=== PATIENT | female | born 1945 | race Caucasian/White ===

== ENCOUNTER 2018-12-04 11:43 | Emergency (ER) | payer MEDICARE ==
[~2018-12-04] VITALS: Ht 127 cm; Wt 36.3 kg
[~2018-12-04 11:43] MED LIST: ACCUPRIL; ACET325 PO; ACYC800 PO; ALBU2.5V5 NEB; ALBU90OI INH; ALBU90OI61 INH; ALEN70; AMIT25; AMIT50 PO; AMLO10 PO; ASPI81EC PO; ATOR10; ATOR10 PO; ATOR40TA; BACL10 PO; BENZ100A PO; CALCAVITD; CALCIUM; CALGLU500; CENTRUM SILVER1 EAC2 PO; CEPH500 PO; CIPR500 PO; CIPRO500 MG PO; CLOB.05TC TP; CLON.1 PO; CLOP75; CLOP75 PO; CYCL10 PO; Colace100 MG PO; DIABETA; DILT120; DIVA500ER PO; DOC250; DOCU100 PO; DOXY100 PO; Desyrel50 MG; ESCI10; FERR325 PO; FLUT.05NI; GABA300 PO; GLIP2.5ER PO; GLIP5; GLIP5ER; GLYB5 PO; HYDACE10B PO; HYDACE5 PO; HYDACE7.5 PO; IBUP400 PO; IBUP600 PO; IMITREX; K-Dur20 MEQ PO; LEVFLO500 PO; LISI5; LOSA25 PO; MAGCHL64ER PO; MAGGLU250 PO; MAGOXI400 PO; MECL25 PO; METF500; METF500 PO; METH10; METO10 PO; METO100ER; METO25ER; METR500 PO; MULVITMINF; MULVITMINF PO; NAPROXEN; NORT25; Norco 5-325 Ta1 EACH PO; OMEG1CAP30 PO; OMEP20ER; OXYACE5T PO; OXYC5; Omeprazole20 M1 PO; PANT40 PO; POTA10T PO; POTCHL20ER PO; PRAV20 PO; PRED20 PO; PROM25 PO; PROP10 PO; PROP60 PO; PYRI100 PO; Pepcid40 MG PO; Prednisone20 MG PO; RANI150 PO; RANITIDINE; ROSU10TA PO; ROSU5 PO; SAXA2.5T; SAXA2.5T PO; SUCR1SU PO; SUMA25; Sucralfate1 GM PO; Super B-50 Com1 EACH PO; TIOT18 IH; TIZANIDINE HCL4 MG PO; TOCO400 PO; TRAM50 PO; UNKNOWN BP MED; VENL25 PO; VERA80 PO; VITAMIN D-32000 UNI1 PO; VITAMIN D-32000 UNIT PO; ZOLP10; Zantac150 MG PO; Zofran Odt8 MG SL; Zofran4 MG PO
[2018-12-04 12:50] LABS: BASOPHILS ABSOLUTE AUTO 0.05 K/mm3 (0.00-0.23); BASOPHILS PERCENT AUTO 1 % (0-2); EOSINOPHILS ABSOLUTE AUTO 0.14 K/mm3 (0.00-0.68); EOSINOPHILS PERCENT AUTO 1 % (0-6); Hematocrit 40.5 % (33.0-51.0); Hemoglobin 12.8 g/dL (11.5-16.0); IMMATURE GRAN ABSOLUTE AUTO 0.03 K/mm3 (0.00-0.10); IMMATURE GRAN PERCENT AUTO 0 % (0-1); LYMPHOCYTES ABSOLUTE AUTO 2.18 K/mm3 (0.84-5.20); LYMPHOCYTES PERCENT AUTO 22 % (21-46); MONOCYTES ABSOLUTE AUTO 0.57 K/mm3 (0.16-1.47); MONOCYTES PERCENT AUTO 6 % (4-13); Mean Corpuscular HGB Conc 31.6 g/dL (31.5-36.5); Mean Corpuscular Volume 95 fL (80-100); Mean Platelet Volume 9.6 fL (9.1-12.4); NEUTROPHILS ABSOLUTE AUTO 6.93 K/mm3 (1.96-9.15); NEUTROPHILS PERCENT AUTO 70 % (41-73); Platelet Count 237 K/mm3 (150-400); RDW Coefficient Variation 16.4 % (11.7-14.2); RDW Standard Deviation 56.2 fL (35.1-46.3); Red Blood Cell Count 4.26 M/mm3 (3.80-5.20)
[2018-12-04 12:58] LABS: Alanine Aminotransfer (ALT/SGP 19 U/L (12-78); Albumin, Blood 2.8 g/dL (3.4-5.0); Albumin/Globulin Ratio 0.8 (0.8-1.8); Alk Phos 109 U/L (50-136); Anion Gap 10 mmol/L (6-16); Aspartate Aminotrans (AST/SGOT 18 U/L (12-37); Bilirubin, Total 0.3 mg/dL (0.1-1.0); Blood Urea Nitrogen 15 mg/dL (8-24); Bun/Creatinine Ratio 32.1 (12.0-20.0); CO2, Blood 25 mmol/L (21-32); Calcium, Blood 8.9 mg/dL (8.5-10.1); Chloride, Blood 112 mmol/L (98-108); Creatinine, Blood 0.47 mg/dL (0.40-1.00); Globulin, Blood 3.7 g/dL (2.2-4.0); Glomerular Filtration Rate >60 (60-); Glucose, Blood 118 mg/dL (70-99); Potassium, Blood 3.9 mmol/L (3.5-5.5); Sodium, Blood 147 mmol/L (136-145); Total Protein, Blood 6.5 g/dL (6.4-8.2)
== END 2018-12-04 15:10 | disposition home or self-care (01) ==
LOC: ER 11:43
PROVIDERS: Emergency Medicine
DX: G89.18 Other acute postprocedural pain (principal); R10.31 Right lower quadrant pain; G43.909 Migraine, unspecified, not intractable, without status migrainosus; E11.9 Type 2 diabetes mellitus without complications; Z88.2 Allergy status to sulfonamides; Z79.84 Long term (current) use of oral hypoglycemic drugs; Z79.899 Other long term (current) drug therapy; Z79.52 Long term (current) use of systemic steroids
CPT/HCPCS: 74177; 80053; 85025; J2270; Q9967

== ENCOUNTER 2019-01-28 11:20 | Emergency (ER) | payer MEDICARE ==
[~2019-01-28] VITALS: Ht 127 cm; Wt 36.3 kg
[2019-01-28 12:18] LABS: BASOPHILS ABSOLUTE AUTO 0.04 K/mm3 (0.00-0.23); BASOPHILS PERCENT AUTO 0 % (0-2); EOSINOPHILS PERCENT AUTO 0 % (0-6); Hematocrit 44.5 % (33.0-51.0); Hemoglobin 14.8 g/dL (11.5-16.0); IMMATURE GRAN ABSOLUTE AUTO 0.03 K/mm3 (0.00-0.10); IMMATURE GRAN PERCENT AUTO 0 % (0-1); LYMPHOCYTES ABSOLUTE AUTO 2.36 K/mm3 (0.84-5.20); LYMPHOCYTES PERCENT AUTO 22 % (21-46); MONOCYTES PERCENT AUTO 6 % (4-13); Mean Corpuscular HGB 31.4 pg (26.0-34.0); Mean Corpuscular HGB Conc 33.3 g/dL (31.5-36.5); Mean Corpuscular Volume 95 fL (80-100); Mean Platelet Volume 9.3 fL (9.1-12.4); NEUTROPHILS ABSOLUTE AUTO 7.97 K/mm3 (1.96-9.15); NEUTROPHILS PERCENT AUTO 72 % (41-73); Platelet Count 324 K/mm3 (150-400); RDW Coefficient Variation 16.1 % (11.7-14.2); RDW Standard Deviation 55.6 fL (35.1-46.3); Red Blood Cell Count 4.71 M/mm3 (3.80-5.20)
[2019-01-28 12:35] LABS: Alanine Aminotransfer (ALT/SGP 30 U/L (12-78); Albumin, Blood 3.4 g/dL (3.4-5.0); Albumin/Globulin Ratio 0.8 (0.8-1.8); Alk Phos 97 U/L (50-136); Anion Gap 9 mmol/L (6-16); Aspartate Aminotrans (AST/SGOT 48 U/L (12-37); Bilirubin, Total 0.5 mg/dL (0.1-1.0); Blood Urea Nitrogen 21 mg/dL (8-24); Bun/Creatinine Ratio 43.6 (12.0-20.0); CO2, Blood 24 mmol/L (21-32); Calcium, Blood 9.4 mg/dL (8.5-10.1); Chloride, Blood 99 mmol/L (98-108); Creatinine, Blood 0.48 mg/dL (0.40-1.00); Globulin, Blood 4.5 g/dL (2.2-4.0); Glomerular Filtration Rate >60 (60-); Glucose, Blood 414 mg/dL (70-99); Potassium, Blood 4.5 mmol/L (3.5-5.5); Sodium, Blood 132 mmol/L (136-145); Total Protein, Blood 7.9 g/dL (6.4-8.2)
== END 2019-01-28 19:21 | disposition left against medical advice (07) ==
LOC: MRI 11:20 → ER 11:20
PROVIDERS: Physician Assistant
DX: M79.604 Pain in right leg (principal); M79.605 Pain in left leg; M41.9 Scoliosis, unspecified; G43.909 Migraine, unspecified, not intractable, without status migrainosus; E11.9 Type 2 diabetes mellitus without complications; Z79.52 Long term (current) use of systemic steroids; Z79.899 Other long term (current) drug therapy; Z79.84 Long term (current) use of oral hypoglycemic drugs; Z88.2 Allergy status to sulfonamides; Z87.891 Personal history of nicotine dependence
CPT/HCPCS: 36415; 72148; 80053; 84484; 85025; 93005; 93010; 96374; 96375; 99284-25; J1170; J2405

== ENCOUNTER 2019-04-18 10:02 | Emergency (ER) | payer MEDICARE, OTHER ==
[~2019-04-18] VITALS: Ht 127 cm; Wt 34.5 kg
[2019-04-18 11:29] LABS: BASOPHILS ABSOLUTE AUTO 0.02 K/mm3 (0.00-0.23); BASOPHILS PERCENT AUTO 0 % (0-2); EOSINOPHILS ABSOLUTE AUTO 0.02 K/mm3 (0.00-0.68); EOSINOPHILS PERCENT AUTO 0 % (0-6); Hematocrit 28.4 % (33.0-51.0); Mean Corpuscular HGB 32.4 pg (26.0-34.0); Mean Corpuscular HGB Conc 31.7 g/dL (31.5-36.5); Mean Corpuscular Volume 102 fL (80-100); Mean Platelet Volume 9.8 fL (9.1-12.4); Platelet Count 159 K/mm3 (150-400); RDW Standard Deviation 60.1 fL (35.1-46.3); Red Blood Cell Count 2.78 M/mm3 (3.80-5.20); White Blood Cell Count 9.12 K/mm3 (4.00-11.30)
[2019-04-18 11:50] LABS: Alanine Aminotransfer (ALT/SGP 34 U/L (12-78); Albumin, Blood 2.3 g/dL (3.4-5.0); Albumin/Globulin Ratio 0.6 (0.8-1.8); Alk Phos 109 U/L (50-136); Anion Gap 7 mmol/L (6-16); Aspartate Aminotrans (AST/SGOT 13 U/L (12-37); Bilirubin, Total 0.7 mg/dL (0.1-1.0); Blood Urea Nitrogen 15 mg/dL (8-24); Bun/Creatinine Ratio 26.3 (12.0-20.0); CO2, Blood 26 mmol/L (21-32); Calcium, Blood 8.5 mg/dL (8.5-10.1); Chloride, Blood 105 mmol/L (98-108); Creatinine, Blood 0.57 mg/dL (0.40-1.00); Globulin, Blood 3.8 g/dL (2.2-4.0); Glomerular Filtration Rate >60 (60-); Glucose, Blood 115 mg/dL (70-99); Potassium, Blood 3.5 mmol/L (3.5-5.5); Sodium, Blood 138 mmol/L (136-145); Total Protein, Blood 6.1 g/dL (6.4-8.2)
[2019-04-18 11:55] LABS: IMMATURE GRAN ABSOLUTE AUTO 0.08 K/mm3 (0.00-0.10); IMMATURE GRAN PERCENT AUTO 1 % (0-1); LYMPHOCYTES ABSOLUTE AUTO 0.49 K/mm3 (0.84-5.20); LYMPHOCYTES PERCENT AUTO 5 % (21-46); MONOCYTES ABSOLUTE AUTO 0.08 K/mm3 (0.16-1.47); MONOCYTES PERCENT AUTO 1 % (4-13); NEUTROPHILS ABSOLUTE AUTO 8.43 K/mm3 (1.96-9.15); NEUTROPHILS PERCENT AUTO 92 % (41-73)
[2019-04-18] MEDS ORDERED: OXYC10TA19 PO (13:34)
[2019-04-18] MEDS ORDERED: ONDA4ODT MM (13:35)
== END 2019-04-18 14:36 | disposition home or self-care (01) ==
LOC: ER 10:02
PROVIDERS: Emergency Medicine
DX: K59.00 Constipation, unspecified (principal); R51 Headache; C56.9 Malignant neoplasm of unspecified ovary; E11.9 Type 2 diabetes mellitus without complications; Z88.2 Allergy status to sulfonamides; Z87.891 Personal history of nicotine dependence
CPT/HCPCS: 74018; 80053; 85025; 96361; 96374; 96375; 99284-25; J1170; J1200; J1642; J1885; J7030

== ENCOUNTER 2019-04-24 16:31 | Inpatient (IN) | payer MEDICARE, OTHER ==
[~2019-04-24] VITALS: Ht 134.6 cm; Wt 34.5 kg
[~2019-04-24 16:31] MED LIST changes: +ONDA4ODT MM; +OXYC10TA19 PO
[2019-04-24 17:01] LABS: Hematocrit 27.2 % (33.0-51.0); Hemoglobin 8.6 g/dL (11.5-16.0); Mean Corpuscular HGB Conc 31.6 g/dL (31.5-36.5); Mean Corpuscular Volume 104 fL (80-100); Mean Platelet Volume 10.5 fL (9.1-12.4); Platelet Count 72 K/mm3 (150-400); RDW Coefficient Variation 15.6 % (11.7-14.2); RDW Standard Deviation 59.8 fL (35.1-46.3); Red Blood Cell Count 2.61 M/mm3 (3.80-5.20); White Blood Cell Count 8.56 K/mm3 (4.00-11.30)
[2019-04-24 17:23] LABS: Alanine Aminotransfer (ALT/SGP 47 U/L (12-78); Albumin, Blood 2.6 g/dL (3.4-5.0); Albumin/Globulin Ratio 0.6 (0.8-1.8); Alk Phos 203 U/L (50-136); Anion Gap 8 mmol/L (6-16); Aspartate Aminotrans (AST/SGOT 51 U/L (12-37); BAND PERCENT MAN 1 % (0-8); BASOPHILS PERCENT MAN 0 % (0-2); Bilirubin, Total 0.9 mg/dL (0.1-1.0); Blood Urea Nitrogen 16 mg/dL (8-24); Bun/Creatinine Ratio 29.4 (12.0-20.0); CO2, Blood 24 mmol/L (21-32); Calcium, Blood 8.9 mg/dL (8.5-10.1); Chloride, Blood 109 mmol/L (98-108); Creatinine, Blood 0.55 mg/dL (0.40-1.00); EOSINOPHILS PERCENT MAN 0 % (0-6); Glomerular Filtration Rate >60 (60-); Glucose, Blood 175 mg/dL (70-99); LYMPHOCYTES ABSOLUTE MAN 0.08 K/mm3 (0.84-5.20); LYMPHOCYTES PERCENT MAN 1 % (21-46); MONOCYTES PERCENT MAN 0 % (4-13); NEUTROPHILS ABSOLUTE MAN 8.47 K/mm3 (1.96-9.15); Potassium, Blood 3.5 mmol/L (3.5-5.5); SEG NEUTROPHILS PERCENT MAN 98 % (41-73); Sodium, Blood 141 mmol/L (136-145); TOTAL CELLS COUNTED 100; Total Protein, Blood 6.6 g/dL (6.4-8.2); Troponin I <0.015 ng/mL (0.000-0.040)
[2019-04-24] MEDS ORDERED: Lovastatin20 MG PO (21:08)
[2019-04-24] MEDS ORDERED: METF500 PO (21:08)
[2019-04-24] MEDS ORDERED: Imitrex50 MG PO (21:09)
[2019-04-24] MEDS ORDERED: ACET500 PO (21:15)
[2019-04-24 23:54] LABS: Source, Urine Clean Catch
[2019-04-25 00:04] LABS: Bilirubin, Urine Neg (Neg); Blood, Urine 4+ (Neg); Glucose Qualitative, Urine Neg (Neg); Ketones, Urine 3+ (Neg); Leukocyte Esterase, Urine Neg (Neg); Nitrite, Urine Neg (Neg); Protein, Urine 3+ (Neg); Urobilinogen, Urine NORM (Normal)
[2019-04-25 00:19] LABS: Appearance, Urine Clear (Clear); Bacteria Not Seen /hpf; Color, Urine Yellow (P-Yellow); Red Blood Cells, Urine 25-50 /hpf (0-2); Squamous Epithelial Cells Not Seen /hpf (Few); White Blood Cells, Urine Rare /hpf (0-5)
[2019-04-25 05:30] LABS: BASOPHILS ABSOLUTE AUTO 0.01 K/mm3 (0.00-0.23); BASOPHILS PERCENT AUTO 0 % (0-2); Hematocrit 24.3 % (33.0-51.0); Hemoglobin 7.9 g/dL (11.5-16.0); LYMPHOCYTES ABSOLUTE AUTO 0.37 K/mm3 (0.84-5.20); LYMPHOCYTES PERCENT AUTO 5 % (21-46); MONOCYTES ABSOLUTE AUTO 0.07 K/mm3 (0.16-1.47); MONOCYTES PERCENT AUTO 1 % (4-13); Mean Corpuscular HGB 33.3 pg (26.0-34.0); Mean Corpuscular HGB Conc 32.5 g/dL (31.5-36.5); Mean Corpuscular Volume 103 fL (80-100); RDW Coefficient Variation 15.5 % (11.7-14.2); RDW Standard Deviation 58.4 fL (35.1-46.3); Red Blood Cell Count 2.37 M/mm3 (3.80-5.20)
[2019-04-25 05:35] LABS: EOSINOPHILS PERCENT AUTO 0 % (0-6); IMMATURE GRAN ABSOLUTE AUTO 0.71 K/mm3 (0.00-0.10); IMMATURE GRAN PERCENT AUTO 10 % (0-1); Mean Platelet Volume 10.3 fL (9.1-12.4); NEUTROPHILS ABSOLUTE AUTO 6.24 K/mm3 (1.96-9.15); NEUTROPHILS PERCENT AUTO 84 % (41-73); Platelet Count 66 K/mm3 (150-400)
--- NOTE | 2019-04-25 05:48 | NUR ---
SHIFT SUMMARY PT ARRIVED TO FLOOR IN SOME DISCOMFORT. PT MEDICATED PER EMAR. PT C/O PERSAUD AND ABD PAIN/ CRAMPING. PT REMAINED NPO T/O SHIFT. PT HAS SLEPT OFF AND ON. PT IS HARD IV START AND HAD ONE SITE INFILTRATE. LAB HAD DIFFICULTY DRAWING BLOOD. PT ABLE TO USE RESTROOM WITH 1 ASSIST. PT MEDICATED PER EMAR WITH REDUCTION IN DISCOMFORT. PT CURRENTLY SLEEPING AND BREATHING. CALL LIGHT IN REACH.
[2019-04-25 06:04] LABS: Alanine Aminotransfer (ALT/SGP 50 U/L (12-78); Albumin, Blood 2.2 g/dL (3.4-5.0); Albumin/Globulin Ratio 0.6 (0.8-1.8); Alk Phos 227 U/L (50-136); Anion Gap 9 mmol/L (6-16); Aspartate Aminotrans (AST/SGOT 49 U/L (12-37); Bilirubin, Total 0.8 mg/dL (0.1-1.0); Blood Urea Nitrogen 10 mg/dL (8-24); Bun/Creatinine Ratio 18.7 (12.0-20.0); CO2, Blood 24 mmol/L (21-32); Chloride, Blood 107 mmol/L (98-108); Creatinine, Blood 0.53 mg/dL (0.40-1.00); Globulin, Blood 3.9 g/dL (2.2-4.0); Glomerular Filtration Rate >60 (60-); Glucose, Blood 98 mg/dL (70-99); Magnesium, Blood 1.4 mg/dL (1.6-2.4); Potassium, Blood 3.2 mmol/L (3.5-5.5); Sodium, Blood 140 mmol/L (136-145); Total Protein, Blood 6.1 g/dL (6.4-8.2)
--- NOTE | 2019-04-25 11:31 | NUR ---
Patient is lying in bed and resting when I entered patient's room. Patient quickly awakens to the sound of her name. Patient shares with me about her cancer ledezma, her struggle with headaches, her family unit complications, her need for better aid at home, her niki traditions and her recent fall. Patient says that she is too stubborn to give up on her fight against cancer. I listen empathically, reinforce helpful attitudes and practices, provide companionship, pastoral prevocational/rehabilitation counselor and prayer. Patient responds well and asks me to visit again. I will continue to be available to patient and family.
--- NOTE | 2019-04-25 16:49 | NUR ---
PATIENT HAS HAD NO ACUTE CHANGES. PAIN MEDS CHANGED TO OXY PER PATIENT REQUEST WHICH HAVE RELIEVED HER PAIN TO HER SATISFACTION. SHE IS A SBA TO THE BSC. PATIENT HAS BEEN UPGRADED TO FULL LIQUIDS. HAS OF THIS TIME SHE HAS NOT HAD ANY AND THUS THIS NURSE IS UNABLE TO VERIFY HOW SHE IS TOLERATING THEM.
--- NOTE | 2019-04-25 18:24 | NUR ---
POTASSIUM CAUSING PATIENT GREAT PAIN EVEN SLOWING RATE DOWN AND INCREASING RATE OF NS. ABX DUE SO THAT WAS HUNG. WILL REEVALUATE PATIENTS TOLERANCE TO THE K+ AFTER ABX HAS RAN. WILL PASS THIS ON TO FINISHING AND SHIPPING SUPERVISOR IT WILL MOST LIKELY FALL ON HIS SHIFT.
[2019-04-26 05:05] LABS: Hematocrit 24.2 % (33.0-51.0); Hemoglobin 7.7 g/dL (11.5-16.0); Mean Corpuscular HGB 33.3 pg (26.0-34.0); Mean Corpuscular HGB Conc 31.8 g/dL (31.5-36.5); Mean Corpuscular Volume 105 fL (80-100); Mean Platelet Volume 10.8 fL (9.1-12.4); RDW Coefficient Variation 15.5 % (11.7-14.2); RDW Standard Deviation 59.7 fL (35.1-46.3); Red Blood Cell Count 2.31 M/mm3 (3.80-5.20); White Blood Cell Count 5.49 K/mm3 (4.00-11.30)
[2019-04-26 05:09] LABS: Platelet Count 49 K/mm3 (150-400)
[2019-04-26 05:26] LABS: Alanine Aminotransfer (ALT/SGP 44 U/L (12-78); Albumin, Blood 1.9 g/dL (3.4-5.0); Albumin/Globulin Ratio 0.5 (0.8-1.8); Alk Phos 172 U/L (50-136); Anion Gap 9 mmol/L (6-16); Aspartate Aminotrans (AST/SGOT 33 U/L (12-37); Bilirubin, Direct 0.1 mg/dL (0.0-0.3); Bilirubin, Indirect 0.4 mg/dL (0.1-0.7); Bilirubin, Total 0.5 mg/dL (0.1-1.0); Blood Urea Nitrogen 9 mg/dL (8-24); Bun/Creatinine Ratio 17.5 (12.0-20.0); CO2, Blood 21 mmol/L (21-32); Calcium, Blood 7.9 mg/dL (8.5-10.1); Chloride, Blood 112 mmol/L (98-108); Creatinine, Blood 0.51 mg/dL (0.40-1.00); Globulin, Blood 3.7 g/dL (2.2-4.0); Glomerular Filtration Rate >60 (60-); Glucose, Blood 130 mg/dL (70-99); Phosphorus, Blood 1.4 mg/dL (2.5-4.9); Potassium, Blood 3.7 mmol/L (3.5-5.5); Sodium, Blood 142 mmol/L (136-145); Total Protein, Blood 5.6 g/dL (6.4-8.2)
[2019-04-26 05:33] LABS: BAND PERCENT MAN 7 % (0-8); BASOPHILS PERCENT MAN 0 % (0-2); EOSINOPHILS PERCENT MAN 0 % (0-6); LYMPHOCYTES ABSOLUTE MAN 0.32 K/mm3 (0.84-5.20); LYMPHOCYTES PERCENT MAN 6 % (21-46); METAMYELOCYTE PERCENT MAN 2 % (0-0); MONOCYTES ABSOLUTE MAN 0.05 K/mm3 (0.16-1.47); MONOCYTES PERCENT MAN 1 % (4-13); NEUTROPHILS ABSOLUTE MAN 4.99 K/mm3 (1.96-9.15); SEG NEUTROPHILS PERCENT MAN 84 % (41-73); TOTAL CELLS COUNTED 100
--- NOTE | 2019-04-26 06:21 | NUR ---
SHIFT SUMMARY PT HAD NO ISSUES OR COMPLAINTS NOTED. PT SLEPT T/O SHIFT. PT DISCOMFORT TX PER EMAR. PT DID HAVE A CRITICAL PLT RESULT. PROVIDER CALLED AND NO ORDERS GIVEN. PT CURRENTLY SLEEPING AND BREATHING EASY. CALL LIGHT IN REACH.
--- NOTE | 2019-04-26 12:11 | NUR ---
Patient share about her fears of going home alone and states that she is afraid of falls due to weakness and concerns about not being able to prepare her own meals. Patient also talks about her fear that her prayers are not heard when she asks God to take away the pain and cancer. I listen empathically, provide spiritual guidance, companionship and prayer. Patient responds well and shows signs of restore niki. I follow up with patient's RN Baldo after visiting with patient and explain patient's fears about going home. Rn states that she will ask patient's doctor for a manager social work referral. I will continue to be available to patient and family.
--- NOTE | 2019-04-26 18:15 | NUR ---
NO ACUTE CHANGES. PATIENTS IV WONT FLUSH . ABX MEDS CHANGED TO PO. PATIENT IS CONCERNED WITH BEING DISCHARGED TO HOME SHE FEELS LIKE SHE CANNOT TAKE CARE OF HERSELF. PALLATIVE CARE REQUESTED. SHE WOULD LIKE TO DISCUSS WITH DISCHARGE PLANNING OR PALLATIVE CARE WHAT HER OPTIONS ARE. SHE CONTINUES TO HAVE WEAKNESS AND REQUIRES SBA TO GET TO BSC
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
[2019-04-27 05:14] LABS: Hematocrit 25.7 % (33.0-51.0); Mean Corpuscular HGB 33.3 pg (26.0-34.0); Mean Corpuscular HGB Conc 31.1 g/dL (31.5-36.5); Mean Corpuscular Volume 107 fL (80-100); Mean Platelet Volume 11.7 fL (9.1-12.4); RDW Coefficient Variation 15.4 % (11.7-14.2); RDW Standard Deviation 60.6 fL (35.1-46.3); White Blood Cell Count 4.63 K/mm3 (4.00-11.30)
[2019-04-27 05:20] LABS: Platelet Count 33 K/mm3 (150-400)
[2019-04-27 05:32] LABS: Anion Gap 7 mmol/L (6-16); Blood Urea Nitrogen 12 mg/dL (8-24); Bun/Creatinine Ratio 24.5 (12.0-20.0); CO2, Blood 22 mmol/L (21-32); Calcium, Blood 8.3 mg/dL (8.5-10.1); Chloride, Blood 112 mmol/L (98-108); Creatinine, Blood 0.49 mg/dL (0.40-1.00); Glomerular Filtration Rate >60 (60-); Glucose, Blood 178 mg/dL (70-99); Magnesium, Blood 1.9 mg/dL (1.6-2.4); Phosphorus, Blood 2.3 mg/dL (2.5-4.9); Potassium, Blood 4.1 mmol/L (3.5-5.5); Sodium, Blood 141 mmol/L (136-145)
[2019-04-27 05:38] LABS: BAND PERCENT MAN 2 % (0-8); BASOPHILS PERCENT MAN 0 % (0-2); EOSINOPHILS PERCENT MAN 0 % (0-6); LYMPHOCYTES ABSOLUTE MAN 0.41 K/mm3 (0.84-5.20); LYMPHOCYTES PERCENT MAN 9 % (21-46); MONOCYTES ABSOLUTE MAN 0.04 K/mm3 (0.16-1.47); MONOCYTES PERCENT MAN 1 % (4-13); NEUTROPHILS ABSOLUTE MAN 4.16 K/mm3 (1.96-9.15); SEG NEUTROPHILS PERCENT MAN 88 % (41-73); TOTAL CELLS COUNTED 100
--- NOTE | 2019-04-27 18:18 | NUR ---
SHIFT SUMMARY PT AXO, PLEASANT AND COOPERATIVE WITH CARE. PT TEMP 99.8 AT 1433, MEDICATED PER EMAR FOR FEVER AND PERSAUD. BP AT 0825 WAS ELEVATED AT 208/103 THOUGH NURSE SUSPECTS THE BP CUFF TOO SMALL, IT WAS A CHILD SIZE. DR FENG ALSO AWARE OF ELEVATED BP. IT IS 146/74 AT THIS TIME. PT ALSO MEDICATED FOR MIGRAINE WELL. NO OTHER CHANGES THIS SHIFT.
[2019-04-28 05:39] LABS: Anion Gap 5 mmol/L (6-16); Blood Urea Nitrogen 11 mg/dL (8-24); Bun/Creatinine Ratio 24.8 (12.0-20.0); CO2, Blood 27 mmol/L (21-32); Calcium, Blood 8.4 mg/dL (8.5-10.1); Chloride, Blood 110 mmol/L (98-108); Creatinine, Blood 0.44 mg/dL (0.40-1.00); Glomerular Filtration Rate >60 (60-); Glucose, Blood 163 mg/dL (70-99); Phosphorus, Blood 3.4 mg/dL (2.5-4.9); Sodium, Blood 142 mmol/L (136-145)
[2019-04-28 06:34] LABS: Hematocrit 25.2 % (33.0-51.0); Hemoglobin 7.8 g/dL (11.5-16.0); Mean Corpuscular HGB 32.6 pg (26.0-34.0); Mean Corpuscular Volume 105 fL (80-100); Mean Platelet Volume 10.1 fL (9.1-12.4); RDW Coefficient Variation 15.3 % (11.7-14.2); RDW Standard Deviation 59.7 fL (35.1-46.3); Red Blood Cell Count 2.39 M/mm3 (3.80-5.20); White Blood Cell Count 4.71 K/mm3 (4.00-11.30)
[2019-04-28 06:36] LABS: Platelet Count 16 K/mm3 (150-400)
[2019-04-28 06:46] LABS: BAND PERCENT MAN 3 % (0-8); BASOPHILS ABSOLUTE MAN 0.04 K/mm3 (0.00-0.23); BASOPHILS PERCENT MAN 1 % (0-2); EOSINOPHILS PERCENT MAN 0 % (0-6); LYMPHOCYTES ABSOLUTE MAN 0.56 K/mm3 (0.84-5.20); LYMPHOCYTES PERCENT MAN 12 % (21-46); MONOCYTES ABSOLUTE MAN 0.23 K/mm3 (0.16-1.47); MONOCYTES PERCENT MAN 5 % (4-13); NEUTROPHILS ABSOLUTE MAN 3.86 K/mm3 (1.96-9.15); SEG NEUTROPHILS PERCENT MAN 79 % (41-73); TOTAL CELLS COUNTED 100
--- NOTE | 2019-04-28 12:58 | NUR ---
PT'S BROTHER LILLY CALLED AND NOTIFIED NURSE THAT PT HAS A CHEMO APPOINTMENT AT 1015 TOMORROW MORNING 04/29/19. HE CAN DRIVE HER TO THAT APPOINTMENT. HIS PHONE NUMBER IS [phone] AND HOME NUMBER IS [phone]
--- NOTE | 2019-04-28 17:54 | NUR ---
SHIFT SUMMARY PT AXO, PLEASANT AND COOPERATIVE WITH CARE. UP TO CHAIR FOR MEALS. AMBULATING TO BATHROOM TO VOID. PT COMPLAINS OF HEADACHE, MEDICATED PER EMAR THOUGH DENIES PERSAUD. VSS. DR NOTIFIED OF [facility] THIS AM, SEE LAB. NO OTHER CHANGES THIS SHIFT. SEE NOTE ABOUT PT CHEMO APPOINTMENT TOMORROW. BED IN LOW POSITION, CALL LIGHT WIHTIN REACH.
[2019-04-29 04:56] LABS: Hematocrit 28.6 % (33.0-51.0); Mean Corpuscular HGB Conc 31.5 g/dL (31.5-36.5); Mean Corpuscular Volume 105 fL (80-100); NRBC ABSOLUTE 0.04 K/mm3 (0.00-0.02); NRBC Auto 0.5 /100 WBC (0.0-0.2); RDW Coefficient Variation 15.3 % (11.7-14.2); RDW Standard Deviation 59.1 fL (35.1-46.3); Red Blood Cell Count 2.73 M/mm3 (3.80-5.20); White Blood Cell Count 8.06 K/mm3 (4.00-11.30)
[2019-04-29 05:07] LABS: Platelet Count 10 K/mm3 (150-400)
[2019-04-29 05:17] LABS: BAND PERCENT MAN 11 % (0-8); BASOPHILS PERCENT MAN 0 % (0-2); EOSINOPHILS PERCENT MAN 0 % (0-6); LYMPHOCYTES ABSOLUTE MAN 0.72 K/mm3 (0.84-5.20); LYMPHOCYTES PERCENT MAN 9 % (21-46); METAMYELOCYTE ABSOLUTE MAN 0.08 K/mm3 (0.00-0.00); METAMYELOCYTE PERCENT MAN 1 % (0-0); MONOCYTES PERCENT MAN 10 % (4-13); MYELOCYTE ABSOLUTE MAN 0.08 K/mm3 (0.00-0.00); MYELOCYTE PERCENT MAN 1 % (0-0); NEUTROPHILS ABSOLUTE MAN 6.36 K/mm3 (1.96-9.15); SEG NEUTROPHILS PERCENT MAN 68 % (41-73); TOTAL CELLS COUNTED 100
--- NOTE | 2019-04-29 06:35 | NUR ---
SHIFT SUMMARY NO ACUTE EVENTS OVERNIGHT. PATIENT UP WITH SBA AND FWW TO BATHROOM MULTIPLE TIMES THROUGHOUT NIGHT. PAIN MEDICATION REQUESTED FOR HEADACHE AND LOWER ABDOMINAL PAIN. PATIENT SCHEDULED FOR 10 AM CHEMOTHERAPY AND IF GOING TO BE DISCHARGED FOR THIS THERAPY BROTHER CAN DRIVE PATIENT TO APPOINTMENT. CRITICAL PLATELET COUNT OF 10 CALLED IN TO PSYCHOLOGICAL AIDE PHYSICIAN.
--- NOTE | 2019-04-29 07:36 | NUR ---
ASSUMED CARE OF PT- BEDSIDE REPORT COMPLETED WITH NIGHT RN ELEAZAR. PER REPORT PT HAS Ca AND IS BEING TREATED WITH CHEMO. LAST TREATMENT WAS LAST MONDAY. PER REPORT PT HAS ANOTHER CHEMO Tx SCHEDULED FOR TODAY AT 10AM. PLAN IS FOR PT TO BE DISCHARGED PRIOR TO THE APPOINTMENT SO THAT SHE CAN MAKE IT TO THE [facility] FOR TREATMENT. WILL CALL HOSPITALIST ADEN.
[2019-04-29] MEDS ORDERED: Vsl#3 Capsule1 EACH PO (09:53)
[2019-04-29] MEDS ORDERED: AMOCLA500 PO (09:53)
--- NOTE | 2019-04-29 12:07 | NUR ---
Patient is sitting on a chair and is alert. Patient complains of head and stomach pain. Patient's RN provides pain meds while I am present. Patient expresses her concerns about going home with minimal assistance but says she thinks that she can manage. I listen empathically. I provide companionship and prayer. Patient thanks me for the visit.
--- NOTE | 2019-04-29 13:30 | NUR ---
DISCHARGE NOTE- PT BROTHER PRESENT AT THE TIME OF DISCHARGE. PT WAS GIVEN VERBAL AND WRITTEN DISCHARGE INSTRUCTIONS AND ACKNOWLEDGED UNDERSTANDING OF THEM. PT MEDIPORT WAS HEPRIN LOCKED AND DEACCESSED AFTER PLATLET INFUSION WAS COMPLETED. AT THE TIME OF DISCHARGE PT HAD NO FURTHER QUESTIONS. PT WAS MEDICATED FOR PAIN PRIOR TO DISCHARGE. PT WAS TAKEN BY W/C ESCORT SERVICE TO THE PT ENTRANCE WHERE HER BROTHER TRANSPORTED HER HOME.
== END 2019-04-29 12:41 | disposition home or self-care (01) | DRG 392 ==
LOC: ER 16:31 → MEDS 20:31 → ER 20:31 → MEDS 20:31 → ENPENDDIS 04-29 09:12 → MEDS 04-29 12:41
PROVIDERS: Emergency Medicine; Internal Medicine; Nurse Practitioner Acute Care; ADMIT Hospitalist
DX: K57.32 Diverticulitis of large intestine without perforation or abscess without bleeding (principal); C78.5 Secondary malignant neoplasm of large intestine and rectum; C56.9 Malignant neoplasm of unspecified ovary; C78.7 Secondary malignant neoplasm of liver and intrahepatic bile duct; C77.9 Secondary and unspecified malignant neoplasm of lymph node, unspecified; C79.82 Secondary malignant neoplasm of genital organs; D69.6 Thrombocytopenia, unspecified; D63.8 Anemia in other chronic diseases classified elsewhere; D64.81 Anemia due to antineoplastic chemotherapy; Z92.21 Personal history of antineoplastic chemotherapy; E87.6 Hypokalemia; E83.39 Other disorders of phosphorus metabolism; E83.42 Hypomagnesemia; E11.9 Type 2 diabetes mellitus without complications; G89.4 Chronic pain syndrome; Z88.2 Allergy status to sulfonamides; Z79.84 Long term (current) use of oral hypoglycemic drugs; Z79.899 Other long term (current) drug therapy; S09.90XA Unspecified injury of head, initial encounter; W19.XXXA Unspecified fall, initial encounter
CPT/HCPCS: 36415; 36430; 70450; 71045; 74177; 76705; 80053; 80069; 81001; 82248; 82947; 83735; 83880; 84100; 84484; 85025; 86304; 86900; 86901; 93005; 93010; 96361-59; 96365-59; 96366; 96367; 96375-59; 96376; 97110; 97116; 97162; 97166; 97530; 99285-25; A9270; A9270-GY; G0378; J0744; J1170; J1642; J2405; J3475; J3480; J7030; J7060; J7120; P9035; Q9967

== ENCOUNTER 2019-05-13 12:14 | Observation (INO) | payer MEDICARE, OTHER ==
[~2019-05-13] VITALS: Ht 134.6 cm; Wt 34.6 kg
[~2019-05-13 12:14] MED LIST changes: +ACET500 PO; +AMOCLA500 PO; +Imitrex50 MG PO; +Lovastatin20 MG PO; +Vsl#3 Capsule1 EACH PO
[2019-05-13] MEDS ORDERED: POTASSIUM CL ER 10 M (12:30)
[2019-05-13] MEDS ORDERED: DICLOFENAC SOD100 G1 (12:30)
[2019-05-13] MEDS ORDERED: Lovastatin20 MG PO (12:31)
[2019-05-13 14:08] LABS: Hematocrit 26.5 % (33.0-51.0); Hemoglobin 8.3 g/dL (11.5-16.0); Mean Corpuscular HGB 34.6 pg (26.0-34.0); Mean Corpuscular HGB Conc 31.3 g/dL (31.5-36.5); Mean Corpuscular Volume 110 fL (80-100); Mean Platelet Volume 10.2 fL (9.1-12.4); NRBC ABSOLUTE 0.03 K/mm3 (0.00-0.02); NRBC Auto 0.1 /100 WBC (0.0-0.2); Platelet Count 315 K/mm3 (150-400); RDW Coefficient Variation 17.7 % (11.7-14.2); RDW Standard Deviation 71.3 fL (35.1-46.3); White Blood Cell Count 37.87 K/mm3 (4.00-11.30)
[2019-05-13 14:34] LABS: Alanine Aminotransfer (ALT/SGP 16 U/L (12-78); Albumin, Blood 2.2 g/dL (3.4-5.0); Albumin/Globulin Ratio 0.5 (0.8-1.8); Alk Phos 332 U/L (50-136); Anion Gap 8 mmol/L (6-16); Aspartate Aminotrans (AST/SGOT 22 U/L (12-37); Bilirubin, Total 0.3 mg/dL (0.1-1.0); Blood Urea Nitrogen 14 mg/dL (8-24); CO2, Blood 29 mmol/L (21-32); Calcium, Blood 8.4 mg/dL (8.5-10.1); Chloride, Blood 105 mmol/L (98-108); Creatinine, Blood 0.54 mg/dL (0.40-1.00); Globulin, Blood 4.2 g/dL (2.2-4.0); Glomerular Filtration Rate >60 (60-); Glucose, Blood 117 mg/dL (70-99); Potassium, Blood 4.3 mmol/L (3.5-5.5); Sodium, Blood 142 mmol/L (136-145); Total Protein, Blood 6.4 g/dL (6.4-8.2)
[2019-05-13 14:43] LABS: BAND PERCENT MAN 4 % (0-8); BASOPHILS ABSOLUTE MAN 0.37 K/mm3 (0.00-0.23); BASOPHILS PERCENT MAN 1 % (0-2); EOSINOPHILS PERCENT MAN 0 % (0-6); LYMPHOCYTES ABSOLUTE MAN 1.51 K/mm3 (0.84-5.20); LYMPHOCYTES PERCENT MAN 4 % (21-46); MONOCYTES ABSOLUTE MAN 0.75 K/mm3 (0.16-1.47); MONOCYTES PERCENT MAN 2 % (4-13); NEUTROPHILS ABSOLUTE MAN 35.21 K/mm3 (1.96-9.15); SEG NEUTROPHILS PERCENT MAN 89 % (41-73); TOTAL CELLS COUNTED 100
[2019-05-13] MEDS ORDERED: OXYC10TA19 PO (15:52)
--- NOTE | 2019-05-13 18:23 | NUR ---
1730 RECEIVED PT TO RM 336 VIA W/C FROM ER. A&O, ABLE TO TX SELF TO BED. PT RECENTLY ADMITTED FOR DIVERTICULITIS. RECEIVED REPORT FROM GOLD ARGUETA, PT TO ER WITH C/O INCREASING ABD PAIN; ADMITTED FOR PARTIAL SBO. 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 LAST CHEMO TX LAST WEEK??, NEXT CHEMO TX NEXT WEEK?? PT HAS DIFFICULTY REMEMBERING EXACT DATES. PT DID REPORT THAT CHEMO TX'S SHE WAS RECEIVING HAD BEEN INEFFECTIVE, PER DR MANNING. THEREFORE, CHEMO DOSE OR MEDICATION WAS CHANGED. PT REPORTED THAT IS WHEN SHE STARTED HAVING THE ABD PAIN. PT GIVEN FENTANYL X2 IN ER FOR PAIN. FENTANYL PATCH TO L UPPER ARM CHANGED TONIGHT WHEN ADMITTED, SEE EMAR; DUE Q3D. PT DENIED N/V; THEREFORE, NO NGT PLACED AT THIS TIME, PER GOLD ARGUETA. PT UP TO BSC X2 IN ER WITH 1P SBA. HX OF DM, POLIO, DIVERTICULITIS, OVARIAN CA W/METS, AND MIGRAINES. MEDICATED WITH TORADOL AFTER ADMIT FOR PERSAUD. PT TO RECEIVE TOPRAMAX AT 2100 FOR MIGRAINE PERSAUD. PT VERY TINY AND FRAIL, BUT PLEASANT AND CO-OP. WARM BLANKET PROVIDED FOR COMFORT. CALL LT IN REACH. WILL REPORT OFF TO ONCOMING SHIFT.
--- NOTE | 2019-05-13 20:05 | NUR ---
ASSUMED CARE OF THE PATIENT, SHE IS RESTING IN BED, COMPLAINS OF ABDOMINAL PAIN, CRAMPING THAT COMES AND GOES. 07/18 WHEN CRAMPING, NO BOWEL MOVEMENT AT THIS TIME, HAS NOT VOIDED FOR URINE SAMPLE YET. IV FLUIDS INFUSING WITH NO PROBLEMS. WILL MEDICATE FOR PAIN WITH NIGHT MEDS PER PATIENT REQUEST.
[2019-05-13 21:22] LABS: Source, Urine Clean Catch
[2019-05-13 21:46] LABS: Bilirubin, Urine Neg (Neg); Blood, Urine Neg (Neg); Glucose Qualitative, Urine Neg (Neg); Ketones, Urine 2+ (Neg); Leukocyte Esterase, Urine Neg (Neg); Nitrite, Urine Neg (Neg); Protein, Urine 3+ (Neg); Specific Gravity, Urine 1.005 (1.003-1.022); Urobilinogen, Urine NORM (Normal)
[2019-05-13 21:48] LABS: Appearance, Urine Clear (Clear); Color, Urine Yellow (P-Yellow)
[2019-05-13 21:53] LABS: Bacteria Rare /hpf; Red Blood Cells, Urine Not Seen /hpf (0-2); Squamous Epithelial Cells Rare /hpf (Few); White Blood Cells, Urine 0-2 /hpf (0-5)
[2019-05-14 05:11] LABS: Hematocrit 26.8 % (33.0-51.0); Hemoglobin 8.2 g/dL (11.5-16.0); Mean Corpuscular HGB 34.3 pg (26.0-34.0); Mean Corpuscular HGB Conc 30.6 g/dL (31.5-36.5); Mean Corpuscular Volume 112 fL (80-100); Mean Platelet Volume 9.9 fL (9.1-12.4); NRBC ABSOLUTE 0.03 K/mm3 (0.00-0.02); NRBC Auto 0.1 /100 WBC (0.0-0.2); Platelet Count 254 K/mm3 (150-400); RDW Coefficient Variation 17.7 % (11.7-14.2); RDW Standard Deviation 71.8 fL (35.1-46.3); Red Blood Cell Count 2.39 M/mm3 (3.80-5.20); White Blood Cell Count 32.55 K/mm3 (4.00-11.30)
[2019-05-14 05:36] LABS: Alanine Aminotransfer (ALT/SGP 11 U/L (12-78); Albumin, Blood 2.1 g/dL (3.4-5.0); Albumin/Globulin Ratio 0.6 (0.8-1.8); Alk Phos 268 U/L (50-136); Anion Gap 7 mmol/L (6-16); Aspartate Aminotrans (AST/SGOT 11 U/L (12-37); Bilirubin, Total 0.5 mg/dL (0.1-1.0); Blood Urea Nitrogen 13 mg/dL (8-24); Bun/Creatinine Ratio 19.3 (12.0-20.0); CO2, Blood 30 mmol/L (21-32); Calcium, Blood 8.3 mg/dL (8.5-10.1); Chloride, Blood 110 mmol/L (98-108); Creatinine, Blood 0.68 mg/dL (0.40-1.00); Globulin, Blood 3.6 g/dL (2.2-4.0); Glomerular Filtration Rate >60 (60-); Glucose, Blood 118 mg/dL (70-99); Potassium, Blood 4.2 mmol/L (3.5-5.5); Sodium, Blood 147 mmol/L (136-145); Total Protein, Blood 5.7 g/dL (6.4-8.2)
--- NOTE | 2019-05-14 07:07 | NUR ---
SHIFT SUMMARY: ENOCH HAD A GOOD NIGHT, SHE SLEPT THROUGHOUT THE NIGHT, ONLY HAD ONE DOSE OF FENTANYL FOR PAIN. STILL HAS MIGRAINE WHICH TOPIRMATE WAS GIVEN. SHE DID GIVE A URINE SAMPLE AND THAT WAS SENT TO THE ER. IV CONTINUED TO INFUSE WITH OUT ANY PROBLEMS, MEDS WERE GIVEN ORDERED. NO ACUTE CHANGES THIS SHIFT. WILL REPORT TO DAY SHIFT.
--- NOTE | 2019-05-14 09:35 | NUR ---
PT WOKE FOR BS REPORT AT START OF SHIFT. C/O PERSAUD RETURNING. PT THEN CALLED FOR ASSIST TO BSC, NEEDING TO VOID AND TRY AND HAVE BM. PT ON BSC FOR A WHILE AND EVENTUALLY HAD VERY SM, HARD BM. BT'S +, NO N/V TO PRESENT, JUST PAIN. WARM BLANKET AND AM MEDS GIVEN. DR LEON HERE TO SEE PT. NEW ORDERS PLACED. PT TO GET UP AND MOVE AROUND IF AND ABLE. PT IS 1P SBA WITH FWW. RADIOLOGY TO TO TAKE PT DOWN FOR SM BOWEL FOLLOW THROUGH. PT C/O SEVERE ABD PAIN WHEN GETTING UP AND GETTING ON GURNEY. MEDICATED PER EMAR WITH IV FENTANYL ON [facility] BEFORE LEAVING AT 0915.
--- NOTE | 2019-05-14 12:50 | NUR ---
Patient is lying in bed and is slow to answer questions and struggles to recall basic info. (like name of her oncologist, why she came into the hospital and when her last chemo threatment was.) I knew the name of her oncologist and helped with that she eventually remembered why she came to the hospital and we never nailed down her last chemo treatment. Patient says that she is struggling with all the pain and longivity of the health battles. patient asks me to pray for her, which I gladly do. I also provide companionship and a calming presence. Patient seems much more comfortable by the time I left.
--- NOTE | 2019-05-14 12:56 | NUR ---
1055 PT RETURNED FROM IMAGING AND BOWEL FOLLOW THROUGH. PT THEN HAVING DIARRHEA FROM PREP GIVEN IN IMAGING; INCONTINENT OF BOWELS. LINEN AND GOWN CHANGED X3. PT C/O SEVERE PERSAUD WHEN RETURNING TO WELL. MEDICATED PER EMAR, WITH MINIMAL TO NO RELIEF. SPOKE WITH DR LEON AND PROVIDED UPDATE ON PT STATUS. NEW ORDERS PLACED. PT MEDICATED AGAIN PER EMAR WITH TYLENOL FOR PERSAUD. 1235 ASSISTED PT OOB TO GO FOR A WALK. PT UP WITH SBA ONLY AND ABLE TO USE FWW. PT AMBULATED OUT OF AND DOWN HALLWAY TO INTERSECTION AND BACK TO . PT TOLERATED WELL CONSIDERING ABD PAIN AND PERSAUD. PT RESTING QUIETLY AT THIS TIME.
--- NOTE | 2019-05-14 15:12 | NUR ---
SHIFT SUMMARY PT SITTING UP IN BED, EATING JELLO AT THIS TIME. DR LEON CALLED TO REPORT AM BOWEL XRAY NORMAL AND PT'S DIET TO BE ADVANCED TOLERATED. PT HAD BEEN ASKING FOR FOOD AND DRINK ALL MORNING. PT REPORTED THAT IT MIGHT HELP HER TO FEEL BETTER. PT HAS HAD DIARRHEA SINCE RETURNING FROM IMAGING AND PREP; BUT IS SLOWING DOWN SOME. PT WAS ABLE TO GO FOR A WALK WITH THIS RN, OUT IN [place] AND AROUND . P/T THEN ORDERED BY DR LEON AND CAME TO WORK WITH PT. O/T IS NOW IN WORKING WITH PT. PT REPORTS LIVING ALONE AND CARING FOR HERSELF TO PRESENT; USES FWW IN THE HOUSE, AND SCOOTER WHEN OUTSIDE. HER BROTHER CALLS HER PERIODICALLY TO CK ON HER. PT HAS BEEN MEDICATED PER EMAR FOR C/O PERSAUD ALL DAY, WITH LITTLE TO NO RELIEF. PT REPORTED HX OF MIGRAINES. PT IS PLEASANT AND CO-OP INSPITE OF PAIN. PT HAS DECLINED TO TRY USING A HEATING PAD FOR RELIEF. PT HAS BEEN ASKED MULTIPLE TIMES BY DIFFERENT STAFF MEMBERS WHO HAVE ASSISTED HER, BUT EACH TIME SAYS "NO". TOLERATED JELLO AND DIET PEPSI TO PRESENT. CALL LT IN REACH.
--- NOTE | 2019-05-14 15:58 | NUR ---
PT CONTINUES TO C/O PERSAUD PAIN. DR LEON NOTIFIED AGAIN. NEW ORDERS PLACED. IMITREX PO X1 ORDERED. HOME DOSE OF OXYCODONE ALSO ORDERED, NOW THAT PT IS ABLE TO EAT AND DRINK.
[2019-05-14 18:34] LABS: Anion Gap 11 mmol/L (6-16); Blood Urea Nitrogen 13 mg/dL (8-24); Bun/Creatinine Ratio 23.4 (12.0-20.0); CO2, Blood 27 mmol/L (21-32); Calcium, Blood 8.9 mg/dL (8.5-10.1); Chloride, Blood 110 mmol/L (98-108); Creatinine, Blood 0.56 mg/dL (0.40-1.00); Glomerular Filtration Rate >60 (60-); Glucose, Blood 162 mg/dL (70-99); Potassium, Blood 3.7 mmol/L (3.5-5.5); Sodium, Blood 148 mmol/L (136-145)
--- NOTE | 2019-05-14 19:55 | NUR ---
ASSUMED CARE OF THE PATIENT, SHE IS RESTING IN THE ROOM. PAIN IS MINIMAL AT THIS TIME, JUST TENDERNESS IN THE ABDOMEN. NO NAUSEA NOTED, IV INFUSING WITH NO PROBLEMS. DENIED ANY COMPLAINTS OR NEEDS AT THIS TIME, ASSESSMENT COMPLETED SEE FOR DETAILS. CALL LIGHT IN REACH.
[2019-05-15 05:14] LABS: Hematocrit 23.9 % (33.0-51.0); Hemoglobin 7.2 g/dL (11.5-16.0); Mean Corpuscular HGB 33.5 pg (26.0-34.0); Mean Corpuscular HGB Conc 30.1 g/dL (31.5-36.5); Mean Corpuscular Volume 111 fL (80-100); NRBC ABSOLUTE 0.12 K/mm3 (0.00-0.02); NRBC Auto 0.2 /100 WBC (0.0-0.2); RDW Coefficient Variation 17.8 % (11.7-14.2); RDW Standard Deviation 70.5 fL (35.1-46.3); Red Blood Cell Count 2.15 M/mm3 (3.80-5.20)
[2019-05-15 05:19] LABS: Mean Platelet Volume 10.5 fL (9.1-12.4); Platelet Count 180 K/mm3 (150-400)
[2019-05-15 05:21] LABS: White Blood Cell Count 51.14 K/mm3 (4.00-11.30)
[2019-05-15 05:36] LABS: BAND PERCENT MAN 2 % (0-8); BASOPHILS PERCENT MAN 0 % (0-2); EOSINOPHILS PERCENT MAN 0 % (0-6); LYMPHOCYTES ABSOLUTE MAN 1.53 K/mm3 (0.84-5.20); LYMPHOCYTES PERCENT MAN 3 % (21-46); MONOCYTES PERCENT MAN 0 % (4-13); MYELOCYTE ABSOLUTE MAN 0.51 K/mm3 (0.00-0.00); MYELOCYTE PERCENT MAN 1 % (0-0); NEUTROPHILS ABSOLUTE MAN 49.09 K/mm3 (1.96-9.15); SEG NEUTROPHILS PERCENT MAN 94 % (41-73); TOTAL CELLS COUNTED 100
[2019-05-15 05:40] LABS: Alanine Aminotransfer (ALT/SGP 37 U/L (12-78); Albumin, Blood 2.6 g/dL (3.4-5.0); Albumin/Globulin Ratio 0.8 (0.8-1.8); Alk Phos 501 U/L (50-136); Anion Gap 7 mmol/L (6-16); Aspartate Aminotrans (AST/SGOT 63 U/L (12-37); Bilirubin, Total 0.5 mg/dL (0.1-1.0); Blood Urea Nitrogen 10 mg/dL (8-24); Bun/Creatinine Ratio 16.9 (12.0-20.0); CO2, Blood 26 mmol/L (21-32); Chloride, Blood 110 mmol/L (98-108); Creatinine, Blood 0.59 mg/dL (0.40-1.00); Globulin, Blood 3.1 g/dL (2.2-4.0); Glomerular Filtration Rate >60 (60-); Glucose, Blood 114 mg/dL (70-99); Potassium, Blood 4.1 mmol/L (3.5-5.5); Sodium, Blood 143 mmol/L (136-145); Total Protein, Blood 5.7 g/dL (6.4-8.2)
--- NOTE | 2019-05-15 05:46 | NUR ---
SHIFT SUMMARY: ENOCH HAD A ROUGH START TO THE NIGHT WITH ABDOMINAL PAIN. HER PAIN WAS 10/10, FIRST GAVE HER ROXICODONE, SHE GOT BETTER BUT IT ONLY LASTED FOR A SHORT BIT BEFORE THE PAIN CAME RIGHT BACK, GAVE ANOTHER DOSE OF FENTANYL 25MG WHICH RELEAVED AGAIN RIGHT AWAY BUT IT WAS BACK IN AN HOUR. SO GAVE ANOTHER DOSE OF 25MCG THIS SEEMED TO EASE IT SO SHE COULD GO TO SLEEP. SLEPT REST OF THE NIGHT. IV CONTINUED TO INFUSE TILL BAG WAS COMPLETED THEN SHE WAS SL. CRITICAL LAB VALUE WAS CALLED INTO DR. CAPELLAN THIS MORNING FOR WBC OF 51.14. HE WAS NOT SURE WHAT TO DO ABOUT THIS, OR WHY IT WAS ELEVATED OTHER THEN HER CANCER. ORDER WAS TO PASS ON TO DR. WILL WHO KNOWS THE PATIENT FURTHER. WILL REPORT THIS TO DAY SHIFT RN.
--- NOTE | 2019-05-15 14:49 | NUR ---
Patient is in the discharge process when I enter patient's room. Patient tells me that she still has some pain and she is concerned about going home but hopes she will be ok. Patient's brother, Rashawn comes into patient's room and seems anxious to take patient immediately, so I find patient's RN and she moves quickly to remove IVs and give Gene all the requested information. I step out of the room as they cover patient's medical information.
--- NOTE | 2019-05-15 15:52 | NUR ---
SHE RECEIVED 1 UNIT OF PRBC'S WITHOUT ANY PROBLEMS. NO SOB. SHE HAD C/O HEADACHE ALL DAY AND SOME ABD PAIN. THE H/A WAS MOST SIGNIFICANT TO HER. SHE RECEIVED OXYCODONE, LATER TYLENOL, AND LATER STILL TYLENOL. HER BROTHER PICKED HER UP. ALSO SPOKE WITH HIM. ENOCH HAS VERY POOR MEMORY. DISCHARGED HOME AT 1502 WITH [facility] TO RESUME CARE.
--- NOTE | 2019-05-15 16:59 | NUR ---
Initial Visit: Pt with current stage 4 ovarian cancer with metastatic disease. She reports that with medication, her pain reduces to a zero level. Her medication is changing from oxycodone to percocet. Her brother is present and instructing her to put the other tablets at home "away" so that she does not take both pain medications at the same time for her pain. He reports that she can be very forgetful. She lives independently. He takes her to her doctor appointments with Dr. Toribio and will sit in on the appointments to ensure that she doesn't forget what the doc says. Pt is alert, oriented, forgetful. She reports that when she takes her pain medication, she does not feel her pain anymore and reports 0/10 pain at this time. She walks with a walker at home, is able to prepare small meals for herself. She reports that her appetite is good: instead of 75 pounds right now, she is at 80 pounds. Presented with advance directive and POLST forms. She reports that she has both documents filled out at home. Her brother reports that when he takes her to the appointment tomorrow, he will drop copies off at the hospital so that we have them on hand. Pt is full code right now. Pt's brother reports that at time of diagnosis, pt was at stage 4 cancer. He reports that the doctor has shared that "it is all gone, except at a small part of her liver." his biggest concern for her is that she missed an appointment and her chemo treatment by being in the hospital. No other concerns at this time, and the pt is discharging home. Will remain available.
== END 2019-05-15 15:01 | disposition home health service (06) ==
LOC: ER 12:14 → MEDS 12:15 → ENPENDDIS 05-15 11:00 → MEDS 05-15 15:01
PROVIDERS: Emergency Medicine; ADMIT Internal Medicine
DX: K56.600 Partial intestinal obstruction, unspecified as to cause (principal); C56.9 Malignant neoplasm of unspecified ovary; K57.92 Diverticulitis of intestine, part unspecified, without perforation or abscess without bleeding; D72.829 Elevated white blood cell count, unspecified; E87.0 Hyperosmolality and hypernatremia; E11.9 Type 2 diabetes mellitus without complications; G43.909 Migraine, unspecified, not intractable, without status migrainosus; Z79.899 Other long term (current) drug therapy; Z88.2 Allergy status to sulfonamides
CPT/HCPCS: 36415; 36430; 74177; 74250; 80048; 80053; 81001; 82947; 83690; 85025; 85027; 86850; 86900; 86901; 86923; 96361; 96372; 96374-59; 96375; 96376; 97162; 97165; 97530; 99285-25; A9270; G0378; J1650; J1885; J2405; J3010; J7030; J7050; P9016; P9046; Q9967

== ENCOUNTER 2019-06-01 18:40 | Inpatient (IN) | payer MEDICARE ==
[~2019-06-01] VITALS: Ht 134.6 cm; Wt 32.6 kg
[~2019-06-01 18:40] MED LIST changes: +DICLOFENAC SOD100 G1; +POTASSIUM CL ER 10 M
[2019-06-01 20:14] LABS: EOSINOPHILS ABSOLUTE AUTO 0.01 K/mm3 (0.00-0.68); EOSINOPHILS PERCENT AUTO 0 % (0-6); Hemoglobin 10.9 g/dL (11.5-16.0); IMMATURE GRAN ABSOLUTE AUTO 1.95 K/mm3 (0.00-0.10); IMMATURE GRAN PERCENT AUTO 3 % (0-1); LYMPHOCYTES ABSOLUTE AUTO 2.28 K/mm3 (0.84-5.20); LYMPHOCYTES PERCENT AUTO 4 % (21-46); MONOCYTES ABSOLUTE AUTO 2.16 K/mm3 (0.16-1.47); MONOCYTES PERCENT AUTO 4 % (4-13); Mean Corpuscular HGB 32.8 pg (26.0-34.0); Mean Corpuscular HGB Conc 32.1 g/dL (31.5-36.5); Mean Platelet Volume 10.7 fL (9.1-12.4); NEUTROPHILS ABSOLUTE AUTO 50.91 K/mm3 (1.96-9.15); NEUTROPHILS PERCENT AUTO 89 % (41-73); NRBC ABSOLUTE 0.02 K/mm3 (0.00-0.02); Platelet Count 171 K/mm3 (150-400); RDW Coefficient Variation 20.9 % (11.7-14.2); RDW Standard Deviation 71.6 fL (35.1-46.3); Red Blood Cell Count 3.32 M/mm3 (3.80-5.20)
[2019-06-01 20:15] LABS: BASOPHILS ABSOLUTE AUTO 0.05 K/mm3 (0.00-0.23); BASOPHILS PERCENT AUTO 0 % (0-2); Mean Corpuscular Volume 102 fL (80-100)
[2019-06-01 20:16] LABS: White Blood Cell Count 57.36 K/mm3 (4.00-11.30)
[2019-06-01 20:34] LABS: Alanine Aminotransfer (ALT/SGP 13 U/L (12-78); Albumin, Blood 2.9 g/dL (3.4-5.0); Albumin/Globulin Ratio 0.6 (0.8-1.8); Alk Phos 427 U/L (50-136); Anion Gap 8 mmol/L (6-16); Aspartate Aminotrans (AST/SGOT 17 U/L (12-37); Bilirubin, Total 0.6 mg/dL (0.1-1.0); Blood Urea Nitrogen 25 mg/dL (8-24); Bun/Creatinine Ratio 40.9 (12.0-20.0); CO2, Blood 26 mmol/L (21-32); Calcium, Blood 9.5 mg/dL (8.5-10.1); Chloride, Blood 98 mmol/L (98-108); Creatinine, Blood 0.61 mg/dL (0.40-1.00); Globulin, Blood 4.6 g/dL (2.2-4.0); Glomerular Filtration Rate >60 (60-); Glucose, Blood 169 mg/dL (70-99); Potassium, Blood 4.6 mmol/L (3.5-5.5); Sodium, Blood 132 mmol/L (136-145); Total Protein, Blood 7.5 g/dL (6.4-8.2)
[2019-06-01] MEDS ORDERED: METOPROLOL SUCC25 MG PO (21:40)
[2019-06-01] MEDS ORDERED: K-Dur10 MEQ PO (21:40)
[2019-06-01] MEDS ORDERED: Lovastatin20 MG PO (21:40)
[2019-06-01] MEDS ORDERED: Fentanyl1 EAC4 TOP (21:40)
[2019-06-01] MEDS ORDERED: FUROSEMIDE20 MG PO (21:40)
[2019-06-01] MEDS ORDERED: METF500 PO (21:41)
[2019-06-01] MEDS ORDERED: Imitrex50 MG PO (21:42)
[2019-06-01] MEDS ORDERED: TOPI50 PO (21:48)
[2019-06-01] MEDS ORDERED: VITAMIN D32000 UNI1 PO (21:57)
[2019-06-01] MEDS ORDERED: Endocet 7.5-321 EACH PO (21:57)
[2019-06-02 05:37] LABS: BASOPHILS ABSOLUTE AUTO 0.17 K/mm3 (0.00-0.23); BASOPHILS PERCENT AUTO 0 % (0-2); EOSINOPHILS ABSOLUTE AUTO 0.02 K/mm3 (0.00-0.68); EOSINOPHILS PERCENT AUTO 0 % (0-6); Hematocrit 33.2 % (33.0-51.0); Hemoglobin 10.5 g/dL (11.5-16.0); IMMATURE GRAN ABSOLUTE AUTO 1.53 K/mm3 (0.00-0.10); IMMATURE GRAN PERCENT AUTO 4 % (0-1); LYMPHOCYTES ABSOLUTE AUTO 2.57 K/mm3 (0.84-5.20); LYMPHOCYTES PERCENT AUTO 6 % (21-46); MONOCYTES PERCENT AUTO 4 % (4-13); Mean Corpuscular HGB 33.9 pg (26.0-34.0); Mean Corpuscular HGB Conc 31.6 g/dL (31.5-36.5); NEUTROPHILS ABSOLUTE AUTO 37.02 K/mm3 (1.96-9.15); NEUTROPHILS PERCENT AUTO 86 % (41-73); NRBC ABSOLUTE 0.02 K/mm3 (0.00-0.02); Platelet Count 171 K/mm3 (150-400); RDW Standard Deviation 78.3 fL (35.1-46.3); White Blood Cell Count 43.01 K/mm3 (4.00-11.30)
[2019-06-02 05:39] LABS: Mean Corpuscular Volume 107 fL (80-100)
--- NOTE | 2019-06-02 06:04 | NUR ---
SHIFT SUMMARY NO ACUTE EVENTS OVERNIGHT. PATIENT SBA TO BSC. LEFT HAND IV PATENT. PATIENT COMPLAINS OF RLQ ABD PAIN. PATIENT PASSING GAS. FENTANYL PATCH ON LEFT UPPER ARM. PATIENT HAD MEDIUM SIZE BOWEL MOVEMENT THIS AM.
--- NOTE | 2019-06-02 19:00 | NUR ---
SHIFT SUMMARY: NO ACUTE CHANGES TO REPORT THIS SHIFT. PT A&O; CALM AND COOPERATIVE WITH CARE. MEDICATED FOR PAIN PER EMAR; NEW ORDER FOR ONE-TIME DOSE OF IMITREX R/T CHRONIC HEADACHE PAIN. PT UP c SBA TO BSC; BOWEL MOVEMENTS THIS SHIFT. PAIN MANAGEMENT CONTINUING. REPORT GIVEN TO ONCOMING RN.
--- NOTE | 2019-06-03 02:53 | NUR ---
SHIFT SUMMARY- PT. RESTED WELL T/O THE SHIFT. ASSISTED TO BSC, C/O PAIN TO THE RLQ. PAIN MED GIVEN PER EMAR, PT. TOLERATED WELL. DENIED ANY NEEDS T/O THE NIGHT. CALL LIGHT WITHIN REACH AND SIDE RAILS UP X2. WILL CONT TO MONITOR.
[2019-06-03 05:00] LABS: BASOPHILS ABSOLUTE AUTO 0.12 K/mm3 (0.00-0.23); BASOPHILS PERCENT AUTO 0 % (0-2); EOSINOPHILS ABSOLUTE AUTO 0.05 K/mm3 (0.00-0.68); EOSINOPHILS PERCENT AUTO 0 % (0-6); Hematocrit 35.6 % (33.0-51.0); Hemoglobin 11.3 g/dL (11.5-16.0); IMMATURE GRAN ABSOLUTE AUTO 1.01 K/mm3 (0.00-0.10); IMMATURE GRAN PERCENT AUTO 3 % (0-1); LYMPHOCYTES ABSOLUTE AUTO 1.73 K/mm3 (0.84-5.20); LYMPHOCYTES PERCENT AUTO 5 % (21-46); MONOCYTES ABSOLUTE AUTO 1.07 K/mm3 (0.16-1.47); MONOCYTES PERCENT AUTO 3 % (4-13); Mean Corpuscular HGB 33.6 pg (26.0-34.0); Mean Corpuscular HGB Conc 31.7 g/dL (31.5-36.5); Mean Corpuscular Volume 106 fL (80-100); Mean Platelet Volume 9.8 fL (9.1-12.4); NEUTROPHILS ABSOLUTE AUTO 32.41 K/mm3 (1.96-9.15); NEUTROPHILS PERCENT AUTO 89 % (41-73); Platelet Count 220 K/mm3 (150-400); RDW Coefficient Variation 20.8 % (11.7-14.2); RDW Standard Deviation 79.1 fL (35.1-46.3); Red Blood Cell Count 3.36 M/mm3 (3.80-5.20); White Blood Cell Count 36.39 K/mm3 (4.00-11.30)
[2019-06-03 05:48] LABS: Albumin, Blood 2.4 g/dL (3.4-5.0); Blood Urea Nitrogen 15 mg/dL (8-24); Bun/Creatinine Ratio 36.2 (12.0-20.0); CO2, Blood 24 mmol/L (21-32); Calcium, Blood 9.1 mg/dL (8.5-10.1); Chloride, Blood 111 mmol/L (98-108); Creatinine, Blood 0.41 mg/dL (0.40-1.00); Glomerular Filtration Rate >60 (60-); Glucose, Blood 170 mg/dL (70-99); Phosphorus, Blood 2.2 mg/dL (2.5-4.9); Potassium, Blood 3.8 mmol/L (3.5-5.5)
[2019-06-03 05:50] LABS: Anion Gap 9 mmol/L (6-16); Sodium, Blood 144 mmol/L (136-145)
--- NOTE | 2019-06-03 08:00 | NUR ---
PT PLEASANT COOP STATES PAIN LOW RT ABD. NEVER GOES AWAY. IS 07/18. ADVANCED DEVELOPER. AFTER PAIN MED, NO REAL RELEIF. ADVISED IF FENTANYL NOT HELPING, ASK DR FOR WHAT YOU TAKE AT HOME AND IT MAY SERVE BETTER. WILL ASK DR. H/R REG, NO MURMER NOTED. NO TELE. LUNGS CLEAR, RESP EASY, UNLABORED. ON R.A. BT X4 LAST BM LOOSE THIS AM. VOIDS PER SBA BSC. BED IN LOW POSITOIN, CALL LITE IN REACH, ALLS APPROP
--- NOTE | 2019-06-03 12:00 | NUR ---
upon receiving a spiritual care referral from patient at admit., I visited patient. Patient openly shares about her pain (which she was receiving pain meds for when I walked in), about her recent prognosis (6 mos or less to live) and about her concerns moving forward. I Urged patient towards hospice care and stated the many benefits that come with that service and also discussed the mental ledezma that goes on with the very idea of hospice. I provided empathic listening, pastoral travel counselor automobile club, a calming presence and prayer. Patient responded well and asked me to visit again if my schedule frees up.
--- NOTE | 2019-06-03 12:18 | NUR ---
BP REMAINS UP AFTER PAIN MED AND BP MED THIS AM. MADE NEW PAIN MED CHANGE. STILL 162/76. CALLED DR CARRINGTON, HYDRALAZINE ORDERED.
--- NOTE | 2019-06-03 14:13 | NUR ---
Met with patient to review symptoms. Pt has a headache today and states they are frequent. No blurred vision ringing in ears or balance disturbance. Pt. denies falls in the past six months. No difficulty swallowing. She denies shorness of breath or neck and back pain. She denies nausea and bloating. Pt laying flat holding lower right abdomen pain sometimes stabbling but mostly in waves and cramping. pt states she walks with walker and uses scooter to go to the market up the street. She denies taking any additional supplements or over the counter medicines. No drugs or alcohol. She has minimal appetitie. Does not drink coffee or sodas states she does not drink much water. She has trouble recalling information on her medications. Most activity is walking around the house a bit. She has a brother that checks on her. We discussed her support system and needs. Asked her about a plan for the future and willing ness to get help or move when she needs to. She has not talked to her family and has no plans. Called her bother and reviewed our conversation with him. Advised him about our conversation and that she may need more help soon. reviewed startegies of helping her with food. Reviewed case with Care managers and hospitalist. Discussed paln for home health for medication management and fluid balance. Suggest daily weights and review of all home meds for geriatric dosing and GI risks. Suggest wean off of narcotics and use tylenol or possibly an atispasmotic. suggest dietary consult with the well services operator at the cancer center. Pr high risk for readmissions and failure to thrive. KPS score 60%. Patients brother asked if we spoke of hospice and prognosis. Advised we did not. He wants Dr. Abernathy to have thet conversation with her when she is ready. Reenforced with her brother not just a hospice issue but frailty and tolerance of treatment. Gave him or phone number and offered to be a resource and support for talking to her about her care and needs. will give pt some spearmint chapstick and neck pillow.
--- NOTE | 2019-06-03 16:04 | NUR ---
PT PLEASANT TODAY. DOES COMPLAIN OF H/ACHE AND ABD PAIN. STATES PAIN BETTER WITH PO OXY. DISCUSSED WITH DRLuke NO OTHER CONCERNS AT THIS TIME. BED IN LOW POSITION, CALL LITE IN REACH, CALLS APPROP
--- NOTE | 2019-06-03 18:04 | NUR ---
PT STATES ABD PAIN IMPROVED SINCE NEW MED BENTYL. NOT MUCH CHANGE ABOUT H/A. BUT IS INGOOD SPIRITS.
--- NOTE | 2019-06-03 18:39 | NUR ---
Met with pt cousin who is helping with care plan and her moving. Called seven since she is not on list of family. she is concerned that pt may not get wound care at level she needs at the palce she is moving. she will speak with pt nephew who is helping coordinate care and they will help her with best fianacial plan.
--- NOTE | 2019-06-04 04:26 | NUR ---
SHIFT SUMMARY- NO ACUTE EVENTS OVERNIGHT. PT. C/O PERSAUD, PAIN MED GIVEN PER EMAR. PT. ASLEEP T/O MOST OF THE NIGHT. NO APPARENT DISTRESS NOTED. CALL LIGHT WITHIN REACH AND SIDE RAILS UP X2. WILL CONT TO MONITOR.
--- NOTE | 2019-06-04 11:56 | NUR ---
Patient is lying in bed with RN present and giving patient pain meds. Patient is complaining of head and side pain, of weakness and of confusion about her prognosis. Patient states that she is still "in the fight" but she is tired. Patient says, "I'm just taking it one day at a time. I listen empathically, discuss support, explore options, invite her to ask her doctors more questions, I provide companionship and prayer. Patient responds well and voices appreciation for the visit. I meet with Palliative Care RN Alea to discuss patient and to learn about the information flow to patient. I learn that patient's brother stated that he was hoping to have all hospital data sent to patient's oncologist and that he could explain things to patient her prognosis. I add that there is time and relationship that is already established with her oncologist and she currently has an appointment with him scheduled for tomorrow.
[2019-06-04] MEDS ORDERED: ACET325 PO (14:37)
[2019-06-04] MEDS ORDERED: Bentyl10 MG PO (14:38)
[2019-06-04] MEDS ORDERED: LISI5 PO (14:38)
[2019-06-04] MEDS ORDERED: DOCU100 PO (14:38)
[2019-06-04] MEDS ORDERED: SENN187 PO (14:39)
[2019-06-04] MEDS ORDERED: MIRALAX17 GM PO (14:39)
--- NOTE | 2019-06-04 16:40 | NUR ---
PT.DISCHARGED HOME WITH BROTHER. PT. VEERBALIZES UNDERSTABDING OF DISCHARGE INSTRUCTIONS. FIORICET GIVEN FOR HEADACHE BEFORE PT. LEFT.
== END 2019-06-04 16:20 | disposition home or self-care (01) | DRG 388 ==
LOC: ER 18:40 → MEDS 21:58 → ENPENDDIS 06-04 13:04 → MEDS 06-04 16:20
PROVIDERS: Internal Medicine; Physician Assistant; ADMIT Hospitalist
DX: K56.7 Ileus, unspecified (principal); E43 Unspecified severe protein-calorie malnutrition; C56.9 Malignant neoplasm of unspecified ovary; K59.03 Drug induced constipation; E11.9 Type 2 diabetes mellitus without complications; Z79.84 Long term (current) use of oral hypoglycemic drugs; Z86.12 Personal history of poliomyelitis; D72.829 Elevated white blood cell count, unspecified; D64.81 Anemia due to antineoplastic chemotherapy; G43.909 Migraine, unspecified, not intractable, without status migrainosus
CPT/HCPCS: 36415; 74176; 80053; 80069; 85025; 87040; 96361; 96365; 96366; 96372; 96374; 96375; 96376; 99285-25; A9270; A9270-GY; G0378; J0360; J1170; J1650; J3010; J7030; J7060